=== PATIENT | male | born 1955 | race Caucasian/White ===

== ENCOUNTER 2018-01-06 05:26 | Inpatient (IN) ==
[2018-01-06] MEDS ORDERED: Vancomycin Inj 1 GM/200 ML PIGGYBACK IV.SIG SCH (06:00)
[2018-01-06] MEDS ORDERED: Chlorhexidine 4% Topical 120 APPLIC/120 ML Bottle TOPICAL SCH (06:00)
[2018-01-06] MEDS ORDERED: Metoprolol Tartrate 25 MG Tablet PO SCH (06:00)
[2018-01-06] MEDS ORDERED: Sodium Chlor 0.9% Inj 500 ML IV.SIG SCH (06:00)
[2018-01-06] MEDS ORDERED: Chlorhexidine Gluconate 2% 1 Pack (2 Cloths) TOPICAL SCH (06:00)
[2018-01-06] MEDS ORDERED: ceFAZolin Inj 2,000 MG in Sodium Chlor 0.9% Inj 100 ML IV.SIG PRN (06:05)
[2018-01-06] MEDS ORDERED: fentaNYL Citrate Inj 250 MCG/5 ML Ampul ONE (07:09)
--- NOTE | 2018-01-06 09:18 | P.BOP ---
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
[2018-01-06] MEDS ORDERED: Bisacodyl 10 MG Supp RECTAL PRN (09:19)
[2018-01-06] MEDS ORDERED: Morphine Inj 4 MG/ML Vial IV.PUSH PRN (09:20)
[2018-01-06] MEDS ORDERED: Post-op Orders (for Pharmacy) OTHER STA (09:22)
--- NOTE | 2018-01-06 09:25 | MP ---
cc: Dae May MD, Patrick MD DATE OF OPERATION: 01/06/2018 PREOPERATIVE DIAGNOSES: 1. Left hip osteoarthritis, acetabular dysplasia. 2. Morbid obesity. POSTOPERATIVE DIAGNOSIS: 1. Left hip osteoarthritis, acetabular dysplasia. 2. Morbid obesity. PROCEDURE: Left total hip arthroplasty. SURGEON: Dae May MD RESEARCH NURSE PRACTITIONER: Karma Chavarria PA-C. ANESTHESIA: General. SPECIMENS: None. COMPLICATIONS: None. DRAINS: None. ACTIVITIES: See orders. PROCEDURE: My hr assistant, Karma Chavarria PA-C was present for the entire surgical case. She was medically necessary for the entire case because of the complexity of the case and to facilitate the performance of the procedure. The ELDER ASSISTANT at the back table was not a skill set for this case to manipulate the instruments, e.g. multiple different types of soft tissue retractors, trial implants, and permanent implants. PROCEDURE: The patient was brought in the operating room, had satisfactory general endotracheal anesthesia by Dr. Morgan of the Department of Anesthesia. The patient was placed in the lateral decubitus position. Because the patient's morbid obesity, great care was made to protect all pressure points. The left hip and lower extremity down to including the toes were prepped and draped in the usual sterile manner. Posterolateral exposure of the hip was made. All bleeders were individually coagulated. Dissection was carried through the skin and subcutaneous tissue. The fascia raza and gluteus arsh was incised in line with the skin incision. Sridhar Charnley retractor was placed in the wound in order to allow better exposure. The short external rotators were removed as the group. The hip abductors were preserved. Capsulotomy was performed. Great care was made to protect the sciatic nerve throughout the entire operative case. The hip was dislocated posteriorly. The patient was found to have severe osteoarthritis involving the hip joint with acetabular dysplasia. Osteotomy was made on the neck at the appropriate level. Exposure and work on the acetabulum was performed. Acetabular capsule and labrum were surgically excised. Multiple hemispheric reamers were then used to initially deepen the acetabulum and then widened it. A 53 mm bicentric cup in a press-fit manner was found to be very stable and satisfactory. Exposure to the proximal femur was made. Work was done on the proximal femur. It was then sequentially broached to a #10 broach using the Biomet Taperloc system. Standard offset. Multiple neck trials were used and a -3 neck, 28 mm ball was found to be stable and satisfactory. Hip was reduced. The patient was found to have satisfactory limb lengths, satisfactory stability and satisfactory range of motion. The hip was dislocated again posteriorly and all trial components were removed. The wound was irrigated with copious amounts of sterile saline antibiotic solution. The wound itself was dry. A #10 Biomet femoral prosthesis was placed in an anatomic position. This was approximated in 15 degrees of anteversion. There was an excellent "fit and fill." A 28 mm x negative 3 neck ceramic head was then used for implant. It was assembled onto the trunnion. The hip was then reduced. Again, the patient was found to have satisfactory stability of the hip, satisfactory limb lengths and satisfactory range of motion. The wound was again irrigated with copious amounts of sterile antibiotic saline antibiotic solution. The wound itself was dry. The wound was closed in multiple layers. First, the short external rotators were repaired back to the greater trochanter with drill holes using #2 TiCron suture. The fascia raza and gluteus arsh was closed with a #2 TiCron suture. The wound itself were dry. The subcutaneous tissues closed in layers with 0 Vicryl and 2-0 Vicryl, skin was approximated with running subcuticular 2-0 nylon. Sterile dressings were applied. The patient tolerated the procedure well and arrived in the recovery room in no stable and satisfactory condition. MD MIGUEL Cerda/SARA , 09:04 AM , 09:13 AM
--- NOTE | 2018-01-06 09:34 | P.DCO ---
- Physical Therapy Physical Therapy: Transfer training, bed to chair Hip: Total hip, Protocol: Left, Posterior hip precautions Canvas Knee Splint: When in bed with 2 pillows between thighs Right Lower Extremity Weight Bearing: Weight bearing as tolerated Left Lower Extremity Weight Bearing: Weight bearing as tolerated - Nursing RN: 3 days/week x 2 weeks Nursing: Dressing changes (clean incision with alcohol and apply dry sterile drssing ) Additional instructions: Aspirin 81 mg bid x 4 weeks - Certification Need for Home Health services: I have seen patient Boy Patel on 01/06/18. My clinical findings support the need for the requested home health care services because: Need for Home Health Services: Deconditioned with increased weakness, High risk of falls Homebound Certification: I certify that my clinical findings support that this patient is homebound because: Homebound Certification: Post-op weakness
[2018-01-06] MEDS ORDERED: *morphine SULFATE 4 MG/ML PERIprocedure ONLY ONE (09:59)
--- NOTE | 2018-01-06 10:08 | XR ---
EXAM DATE: 01/06/2018 10:02 AM EDT AGE/SEX: 62 years / Male INDICATIONS: Post op left hip. CLINICAL DATA: This is the patient's initial encounter. Patient reports that signs and symptoms have been present for 1 day and indicates a pain score of Nonresponsive. MEDICAL/SURGICAL HISTORY: None. None. COMPARISON: No prior exams available for comparison. FINDINGS: Status post placement of a left hip prosthesis. There is good alignment and position of the left hip prosthesis. The bony structures are grossly intact. CONCLUSION: Good position and alignment on this postoperative study. Electronically signed by: Joe Okeefe MD 01/06/2018 10:07 AM EDT
[2018-01-06] MEDS ORDERED: Phenylephrine/NS 1000 MCG/10ML Syringe IV.PUSH ONE (12:00)
[2018-01-06] MEDS ORDERED: Neostigmine Inj 5 MG/5 ML Syringe IV.PUSH ONE (12:00)
[2018-01-06] MEDS ORDERED: Lidocaine PF 1% Inj 5 ML Syringe INFILTRATN ONE (12:00)
[2018-01-06] MEDS ORDERED: Glycopyrrolate Inj 1 MG/5 ML Syringe IV.PUSH ONE (12:00)
[2018-01-06] MEDS ORDERED: Dextrose 50% in Water 50 ML Vial IV.PUSH PRN (17:17)
--- NOTE | 2018-01-06 17:34 | P.CON ---
History of Present Illness Service: Hospitalist service Consult date: 01/06/18 Requesting Physician: Dae May Reason for Consult: Assist with medical management Primary Care Provider: Zelalem Lynn Chief Complaint: s/p left total hip arthroplasty History of Present Illness: This is a 62-year-old male with past medical history significant for hypertension, dyslipidemia, diabetes and osteoarthritis of the left hip who tried and failed numerous attempts at conservative therapy and underwent an elective left total hip replacement performed by Dr. May earlier today. Hospitalist services have been consulted to assist with ongoing medical management. Patient seen and examined. Patient states he feels well. He denies any acute medical complaints at this time. He denies any chest pain or shortness of breath. Denies any fever or chills. Denies any nausea, vomiting or abdominal pain. He reports his postoperative pain is well controlled at present. Review of Systems All other systems reviewed negative except as stated in HPI PMFSH - History History Provided By: Patient - Medical History Medical History: Medical History (Last Reviewed 01/06/18 @ 17:21 by Naila Martin) Diabetes High cholesterol Hypertension Osteoarthritis Wears contact lenses - Surgical History Surgical History: Surgical History (Last Updated 01/06/18 @ 17:22 by Naila Martin) S/P decompression of ulnar nerve History of arthroscopy of both knees History of cardiac catheterization History of carpal tunnel release of both wrists - Family History Family History: Family History (Last Updated 01/06/18 @ 17:22 by Naila Martin) Mother Diabetes - Tobacco History Second Hand Smoke Exposure: Yes Tobacco Use In Past 30 Days: No Smoking Status: Former smoker (Patient quit smoking one month ago) Tobacco Type: Cigarettes Packs Per Day: 0.5 Years Smoked: 50 - Alcohol History How Often Do You Have a Drink Containing Alcohol: Never - Substance Use History Substance History: No History of Abuse - Travel History Recent Travel in the [place] Within the Last 8 Weeks: No Recent Travel Out of the Country Within the Last 8 Weeks: No - Immunization History Hx Influenza Vaccine This Season: No Medications and Allergies Active Medications: Active Medications Hydrocodone Bitart/Acetaminophen ([place] 7.5/325) 2 tab PO Q6H PRN PRN Reason: PAIN SCALE 5 TO 10 Hydrocodone Bitart/Acetaminophen ([place] 7.5/325) 1 tab PO Q4H PRN PRN Reason: PAIN LESS THAN 5 ON SCALE Last Admin: 01/06/18 15:24 Dose: 1 tab Al Hydroxide/Mg Hydroxide (Milk Of Magneric Liq) 30 ml PO BID PRN PRN Reason: Mild Constipation Aspirin (Aspirin Chew) 81 mg PO BID [facility] Atorvastatin Calcium (Lipitor) 80 mg PO HS [facility] Bisacodyl (Dulcolax Supp) 10 mg RECTAL DAILY PRN PRN Reason: SEVERE CONSITIPATION Chlorhexidine Gluconate (Chlorhexidine 2% Cloth) 3 pack TOPICAL APPLICATION SECURITY ARCHITECT [facility] Stop: 01/09/18 05:55 Last Admin: 01/06/18 06:00 Dose: 3 pack Chlorhexidine Gluconate (Hibiclens 4% Topical) 1 applicatio TOPICAL ONCE [facility] Stop: 01/10/18 05:59 Last Admin: 01/06/18 06:15 Dose: 1 applicatio Dextrose (D50w Vial) 50 ml IV.PUSH UNSCH PRN PRN Reason: PER HYPOGLYCEMIA PROTOCOL Fenofibrate (Tricor) 145 mg PO DAILY [facility] Glucagon (Glucagon Inj) 1 mg OTHER PRN PRN PRN Reason: for Hypoglycemia Protocol Lactated Ringer's (Lr 1000 Ml Inj) 1,000 mls @ 30 mls/hr IV.SIG .Q24H [facility] Stop: 01/09/18 05:55 Last Infusion: 01/06/18 08:39 Dose: Infused Sodium Chloride (Ns Inj) 500 mls @ 30 mls/hr IV.SIG .Q10H [facility] Stop: 01/09/18 05:55 Cefazolin Sodium 2,000 mg/ (Sodium Chloride) 100 mls @ 200 mls/hr IV.SIG APPLICATION SECURITY ARCHITECT PRN PRN Reason: PRE-OP GIVE IN OR Last Infusion: 01/06/18 08:38 Dose: Infused Vancomycin/Sodium Chloride (Vancomycin Inj) 1 gm in 200 mls @ 200 mls/hr IV.SIG APPLICATION SECURITY ARCHITECT [facility] Stop: 01/10/18 05:59 Last Infusion: 01/06/18 08:38 Dose: Infused Cefazolin Sodium 1,000 mg/ (Sodium Chloride) 100 mls @ 200 mls/hr IV.SIG Q6H [facility] Stop: 01/07/18 02:29 Last Admin: 01/06/18 15:24 Dose: 200 mls/hr Insulin Aspart (Novolog Insulin Correctional Sugar Inj) 0 unit SQ Q6HR [facility]; Protocol Insulin Detemir (Levemir Inj) 34 unit SQ DAILY [facility] Lactulose (Lactulose Liq) 30 ml PO DAILY PRN PRN Reason: SEVERE CONSITIPATION Liothyronine Sodium (Cytomel) 5 mcg PO DAILY@0600 [facility] Metformin HCl (Glucophage) 1,000 mg PO BIDPC [facility] Metoprolol Tartrate (Lopressor) 25 mg PO APPLICATION SECURITY ARCHITECT [facility] Stop: 01/09/18 05:55 Miscellaneous Information ([facility] Nursing Information) 1 each OTHER UNSCH PRN PRN Reason: SEE LABEL COMMENTS Stop: 01/07/18 09:21 Morphine Sulfate (Morphine Inj) 4 mg IV.PUSH Q3H PRN PRN Reason: BREAKTHROUGH PAIN Pt Own Med [ Trulicity ( Dulaglutide) 1.5 Mg] 0 each SQ WEEKLY [facility] Pt Own Med [ Jardiance ( Empagliflozin) 25 Mg ] 0 each PO DAILY [facility] Povidone Iodine (Betadine 5% Antisepsis Kit) 1 applicatio EACH NARE APPLICATION SECURITY ARCHITECT [facility] Stop: 01/09/18 05:55 Last Admin: 01/06/18 06:59 Dose: 1 applicatio Senna/Docusate Sodium (Cee-Colace) 1 tab PO BID [facility] Sennosides (Senokot) 17.2 mg PO BID PRN PRN Reason: Moderate Constipation Sodium Chloride (Ns Flush) 2 ml IV.FLUSH BID [facility] Sodium Chloride (Ns Flush) 2 ml IV.FLUSH PRN PRN PRN Reason: FLUSH AFTER USING IV ACCESS Triamterene/HCTZ (Maxzide 37.5 Mg-25 Mg) 1 tab PO DAILY [facility] Allergies Allergy/AdvReac Type Severity Reaction Status Date / Time No Known Allergies Allergy Verified 01/06/18 11:24 Home Medications Medication Instructions Recorded Confirmed Type dulaglutide [Trulicity] 1.5 mg SUB-Q QWEEK 01/05/18 01/06/18 History empagliflozin [Jardiance] 25 mg PO DAILY 01/05/18 01/06/18 History fenofibrate 160 mg PO DAILY 01/05/18 01/06/18 History insulin glargine [Lantus U-100 34 unit SUB-Q DAILY 01/05/18 01/06/18 History Insulin] liothyronine 5 mcg PO DAILY 01/05/18 01/06/18 History meloxicam 15 mg PO DAILY 01/05/18 01/06/18 History metformin 1,000 mg PO BID 01/05/18 01/06/18 History rosuvastatin 40 mg PO DAILY 01/05/18 01/06/18 History triamterene-hydrochlorothiazid 1 tab PO DAILY 01/05/18 01/06/18 History Physical Exam Vital signs: Vital Signs 01/06/18 06:30 01/06/18 09:15 01/06/18 09:30 Temperature 99.6 F 97.7 F Pulse Rate 53 L 95 H 93 H Respiratory Rate 16 16 16 Blood Pressure 150/73 H 136/62 131/73 Pulse Oximetry 96 91 L 95 01/06/18 09:45 01/06/18 10:00 01/06/18 10:12 Temperature Pulse Rate 88 87 85 Respiratory Rate 16 16 16 Blood Pressure 147/73 H 139/87 148/73 H Pulse Oximetry 95 95 95 01/06/18 11:00 01/06/18 16:00 Temperature 98.6 F 98.7 F Pulse Rate 92 H 103 H Respiratory Rate 17 17 Blood Pressure 126/65 133/63 Pulse Oximetry 94 L 92 L Intake & Output 01/05/18 01/06/18 01/06/18 18:59 06:59 18:59 Intake Total 1300 / 1300 Output Total 150 / 150 Balance 1150 / 1150 Weight 127.7 kg Intake: IV 1300 / 1300 LR 1000 mL Inj 1,000 ML @ 30 1000 / 1000 mls/hr IV.SIG .Q24H [facility] Rx#: [id number] Vancomycin Inj 1 gm In 200 ml @ 200 / 200 200 mls/hr IV.SIG APPLICATION SECURITY ARCHITECT [facility] Rx#:[id number] Ancef Inj 2,000 MG In NS Inj 100 / 100 100 ML @ 200 mls/hr IV.SIG APPLICATION SECURITY ARCHITECT PRN Rx#:[id number] Oral 0 / 0 Anesthesia Amount 0 / 0 Other 0 / 0 Output: Estimated Blood Loss 150 / 150 Other: Date of Last Bowel Movement 01/06/18 Weight On Admission 127.7 kg Narrative: GENERAL: This is an obese well-developed well-nourished male patient in no acute distress. Awake and alert. Sitting in bedside chair. Appears comfortable. SKIN: Warm and dry. HEAD: Atraumatic. Normocephalic. EYES: Pupils equal and round. No scleral icterus. No injection or drainage. ENT: No nasal bleeding or discharge. Mucous membranes pink and moist. NECK: Trachea midline. No JVD. CARDIOVASCULAR: Regular rate and rhythm. RESPIRATORY: No accessory muscle use. Clear to auscultation. Breath sounds equal bilaterally. GASTROINTESTINAL: Abdomen soft, non-tender, nondistended. Hepatic and splenic margins not palpable. MUSCULOSKELETAL: Extremities without clubbing or cyanosis. + Trace to 1+ BLE pitting edema. s/p Left THR, in postop dressing. NEUROLOGICAL: Awake and alert. No obvious cranial nerve deficits. Motor grossly within normal limits. Able to move all extremities spontaneously. No focal neurologic finding appreciated. Normal speech. PSYCHIATRIC: Appropriate mood and affect; insight and judgment normal. Assessment and Plan - Assessment (1) Status post total hip replacement, left Code(s): Z96.642 - Presence of left artificial hip joint Status: Acute (2) Osteoarthritis of left hip Code(s): M16.12 - Unilateral primary osteoarthritis, left hip Status: Acute - Plan 62-year-old male with past medical history significant for hypertension, dyslipidemia, diabetes and osteoarthritis of the left hip who tried and failed numerous attempts at conservative therapy and underwent an elective left total hip replacement performed by Dr. May earlier today. Hospitalist services have been consulted to assist with ongoing medical management. Osteoarthritis of the left hip failed efforts at conservative treatment status post elective left total hip arthroplasty -Management per orthopedic service -Monitor CBC electrolytes postoperatively -Pain management with bowel regimen -PT per ortho -Maintain hip precautions Hypertension, controlled -Continue patient on home dose of Maxide -Continue to monitor BP and adjust treatment accordingly -Clonidine prn with parameters DM with elevated BS Patient is on Jardiance and Trulicity at home -continue patient on Levemir 34u daily -continue patient on home dose of metformin 1000mg twice daily -Accu-Cheks with insulin sliding scale -Diabetic diet Dyslipidemia -Resume patient's home dose of statin therapy and fenofibrate Hypothyroidism -continue patient on home dose of Liothyronine DVT prophylaxis -ASA 81mg BID per Ortho Thank you very kindly for allowing us to assist in the care of your patient. We will continue to follow patient along with you. Discussed Condition With: patient, nursing staff, Dr. Paul Discharge Planning: Discharge per ortho
[2018-01-06] MEDS: Insulin NovoLOG Aspart Correctional Sugar Inj SQ SCH ×2 (18:01→23:06)
[2018-01-06] MEDS: Senna/Docusate Sodium 8.6/50 MG Tablet PO SCH (20:39)
[2018-01-07] MEDS ORDERED: Liothyronine 5 MCG Tablet PO SCH (06:00)
[2018-01-07 06:10] LABS: Baso % (Auto) 0.3 % (0.0-2.0); Eos # (Auto) 0.1 th/mm3 (0.0-0.4); Eos % (Auto) 1.1 % (0.0-4.0); Hemoglobin 13.4 gm/dL (13.0-17.0); Lymph # (Auto) 1.9 th/mm3 (1.0-4.8); Lymph % (Auto) 21.7 % (9.0-44.0); Mean Corpuscular HGB Conc 32.8 % (32.0-36.0); Mean Corpuscular Hemoglobin 28.1 pg (27.0-34.0); Mean Corpuscular Volume 85.7 fL (80.0-100.0); Mean Platelet Volume 9.7 fL (7.0-11.0); Mono # (Auto) 0.8 th/mm3 (0.0-0.9); Mono % (Auto) 9.3 % (0.0-8.0); Neut # (Auto) 5.8 th/mm3 (1.8-7.7); Neut % (Auto) 67.6 % (16.0-70.0); Platelet Count 256 th/mm3 (150-450); Red Blood Count 4.78 mil/mm3 (4.50-5.90); Red Cell Distribution Width 14.4 % (11.6-17.2); White Blood Count 8.6 th/mm3 (4.0-11.0)
[2018-01-07] MEDS: Insulin NovoLOG Aspart Correctional Sugar Inj SQ SCH (06:23)
[2018-01-07 06:47] LABS: Carbon Dioxide 27.1 meq/L (21.0-32.0)
--- NOTE | 2018-01-07 07:02 | P.PNOP ---
Subjective Interval history: pt doing well, mild post op hip pain seen in the hospital with his sister, Nay ready to be discharged home today no SOB, no chest pain Physical Exam Vital signs: Vital Signs 01/06/18 09:15 01/06/18 09:30 01/06/18 09:45 Temperature 97.7 F Pulse Rate 95 H 93 H 88 Respiratory Rate 16 16 16 Blood Pressure 136/62 131/73 147/73 H Pulse Oximetry 91 L 95 95 01/06/18 10:00 01/06/18 10:12 01/06/18 11:00 Temperature 98.6 F Pulse Rate 87 85 92 H Respiratory Rate 16 16 17 Blood Pressure 139/87 148/73 H 126/65 Pulse Oximetry 95 95 94 L 01/06/18 16:00 01/06/18 20:00 01/07/18 00:00 Temperature 98.7 F 98.2 F 98.5 F Pulse Rate 103 H 87 79 Respiratory Rate 17 18 18 Blood Pressure 133/63 125/65 130/57 L Pulse Oximetry 92 L 93 L 93 L 01/07/18 01:28 01/07/18 04:00 Temperature 98.1 F Pulse Rate 81 Respiratory Rate 18 18 Blood Pressure 137/63 Pulse Oximetry 93 L Intake & Output 01/06/18 01/06/18 01/07/18 06:59 18:59 06:59 Intake Total 1880 / 1880 100 / 100 Output Total 150 / 150 Balance 1730 / 1730 100 / 100 Weight 127.7 kg 127.7 kg Intake: IV 1400 / 1400 100 / 100 LR 1000 mL Inj 1,000 ML @ 30 1000 / 1000 mls/hr IV.SIG .Q24H [facility] Rx#: [id number] Vancomycin Inj 1 gm In 200 ml @ 200 / 200 200 mls/hr IV.SIG DAM WORKER [facility] Rx#:[id number] Ancef Inj 2,000 MG In NS Inj 100 / 100 100 ML @ 200 mls/hr IV.SIG DAM WORKER PRN Rx#:[id number] Ancef Inj 1,000 MG In NS Inj 100 / 100 100 / 100 100 ML @ 200 mls/hr IV.SIG Q6H [facility] Rx#:[id number] Oral 480 / 480 Anesthesia Amount 0 / 0 Other 0 / 0 Output: Estimated Blood Loss 150 / 150 Other: # Voids 3 Date of Last Bowel Movement 01/06/18 01/06/18 Weight On Admission 127.7 kg Narrative: left hip dressing dry and intact no calf tenderness, neg homans +NVI Results - Labs CBC & Chem 7: 01/07/18 04:49 01/07/18 04:47 Laboratory Results - last 24 hr 01/06/18 01/06/18 01/06/18 06:47 07:00 11:47 WBC RBC Hgb Hct MCV MCH MCHC RDW Plt Count MPV Neut % (Auto) Lymph % (Auto) [place] % (Auto) Eos % (Auto) Baso % (Auto) Neut # (Auto) Lymph # (Auto) [place] # (Auto) Eos # (Auto) Baso # (Auto) WBC Differential Differential Comment Sodium Potassium Chloride Carbon Dioxide Anion Gap BUN Creatinine Estimated GFR POC Glucose 140 H 195 H Random Glucose Calcium Blood Type O Positive Antibody Screen Negative MTS Gel Crossmatch See Detail 01/06/18 01/06/18 01/07/18 17:01 22:56 04:47 WBC RBC Hgb Hct MCV MCH MCHC RDW Plt Count MPV Neut % (Auto) Lymph % (Auto) [place] % (Auto) Eos % (Auto) Baso % (Auto) Neut # (Auto) Lymph # (Auto) [place] # (Auto) Eos # (Auto) Baso # (Auto) WBC Differential Differential Comment Sodium 136 Potassium 4.0 Chloride 99 Carbon Dioxide 27.1 Anion Gap 10 BUN 31 H Creatinine 1.77 H Estimated GFR 39 L POC Glucose 251 H 189 H Random Glucose 178 H Calcium 8.0 L Blood Type Antibody Screen MTS Gel Crossmatch 01/07/18 01/07/18 04:49 06:16 WBC 8.6 RBC 4.78 Hgb 13.4 Hct 41.0 MCV 85.7 MCH 28.1 MCHC 32.8 RDW 14.4 Plt Count 256 MPV 9.7 Neut % (Auto) 67.6 Lymph % (Auto) 21.7 [place] % (Auto) 9.3 H Eos % (Auto) 1.1 Baso % (Auto) 0.3 Neut # (Auto) 5.8 Lymph # (Auto) 1.9 [place] # (Auto) 0.8 Eos # (Auto) 0.1 Baso # (Auto) 0.0 WBC Differential . Differential Comment Auto diff final Sodium Potassium Chloride Carbon Dioxide Anion Gap BUN Creatinine Estimated GFR POC Glucose 203 H Random Glucose Calcium Blood Type Antibody Screen MTS Gel Crossmatch - Imaging Impressions Hip X-Ray 01/06/18 00:00 CONCLUSION: Good position and alignment on this postoperative study. Assessment and Plan - Assessment and Plan POD # 1 s/p L CHARISSA PT-WBAT aspirin 81 mg bid x 4 wks dvt prop discharge home [facility] with [facility], orthopedically stable pt was counseled about smoking cessation and avoidance of any nicotine products
[2018-01-07] MEDS: Senna/Docusate Sodium 8.6/50 MG Tablet PO SCH (08:33)
[2018-01-07] MEDS ORDERED: EMPAGLIFLOZIN PO SCH (09:00)
[2018-01-07] MEDS ORDERED: Insulin Detemir Inj 1,000 UNIT/10 ML Vial SQ SCH (09:00)
[2018-01-07] MEDS ORDERED: DULAGLUTIDE SQ SCH (09:00)
[2018-01-07] MEDS ORDERED: Triamterene/HCTZ 37.5 MG/25 MG Tablet PO SCH (09:00)
[2018-01-07] MEDS ORDERED: Fenofibrate 145 MG Tablet PO SCH (09:00)
== END 2018-01-07 12:19 | disposition home health service (06) ==
LOC: HSDI 05:26 → N06 10:37
PROVIDERS: ADMIT Orthopaedic Surgery Orthopaedic Surgery of the Spine; ATTEND Orthopaedic Surgery Orthopaedic Surgery of the Spine